=== PATIENT | female | born 2000 | race Caucasian/White ===

== ENCOUNTER 2023-05-03 18:54 | Outpatient (CLI) | payer OTHER ==
--- NOTE | 2023-05-04 13:46 | XRAY Report ---
PROCEDURE: Finger(s) RT INDICATIONS: PAIN IN RIGHT FINGER TECHNIQUE: AP hand, 2 views of the right index finger(s) acquired. COMPARISON: None. FINDINGS: Bones: Possible nondisplaced fracture at the volar base of the right index finger middle phalanx ann marie alexandra prominent nutrient foramen. No dislocation. No suspicious bony lesions. Soft tissues: No suspicious soft tissue calcifications or masses. IMPRESSION: Curvilinear lucency at the volar base of the right index finger middle phalanx may represent a nondis placed fracture versus prominent nutrient foramen. Recommend correlation with examination for point t enderness in this region. Reviewed by: Tereso Pro MD on 05/04/2023 1:45 PM PDT Approved by: Tereso Pro MD on 05/04/2023 1:45 PM PDT Station ID: [id number]
== END 2023-05-03 18:55 | disposition home or self-care (01) ==
LOC: DI 18:54
PROVIDERS: ATTEND Registered Nurse
DX: M79.644 Pain in right finger(s) (principal)